=== PATIENT | female | born 1970 | race African-American/Black ===

== ENCOUNTER 2018-10-24 08:36 | Inpatient (IN) | payer MEDICAID ==
[~2018-10-24] VITALS: Ht 160 cm; Wt 83.9 kg
[~2018-10-24 08:36] MED LIST: ALBUTEROL; BACL-141 PO; BUSP15TA3 PO; CETI10TA6 PO; FLUO40CA49 PO; GABA-290 PO; HYDR25TA PO; IBUP-2030 PO; OLAN20TA16 PO; OMEP20TA2 PO; POTA10TA15 PO; SIMV10TA6 PO; TRAZ150T78 PO
[2018-10-24] MEDS ORDERED: SODIUM CHLORIDE 0.9% 1,000 ML IV ONE ×2 (09:20→11:00)
[2018-10-24] MEDS ORDERED: ALBUTEROL (0.083%) 2.5MG/3ML NEB HHN STA (09:20)
[2018-10-24] MEDS ORDERED: IPRATROPIUM BROMIDE (0.02%) 0.5MG/2.5ML NEB HHN STA (09:20)
[2018-10-24 10:03] LABS: BASOPHILS % 0.4 % (0.0-2.0); EOSINOPHILS % 0.5 % (0.0-5.0); HEMATOCRIT. 37.5 % (36.0-48.0); HEMOGLOBIN. 12.4 g/dL (12.0-16.0); LYMPHOCYTES % 17.4 % (20.0-50.0); MEAN CORPUSCULAR HEMOGLOBIN 31.4 pg (28.0-32.0); MEAN CORPUSCULAR VOLUME 94.9 fL (81.0-99.0); MEAN PLATELET VOLUME 8.2 fl (7.4-10.4); MONOCYTES % 5.5 % (2.0-8.0); NEUTROPHILS % 76.2 % (40.0-76.0); PLATELET 288 x1000/uL (130-400); RED BLOOD CELL COUNT 3.95 mill/uL (4.2-5.4); RED CELL DISTRIBUTION WIDTH 14.5 % (11.6-14.6)
[2018-10-24 10:11] LABS: CHLORIDE 104 mEq/L (98-107)
[2018-10-24] MEDS ORDERED: GUAIFENESIN-DM 200MG-20MG/10ML UDC PO ONE (11:00)
[2018-10-24 11:45] LABS: CLARITY URINE CLEAR (CLEAR); COLOR URINE YELLOW (YELLOW); KETONES URINE NEGATIVE (NEGATIVE); LEUKOCYTE ESTERASE URINE NEGATIVE (NEGATIVE); NITRITE URINE NEGATIVE (NEGATIVE); OCCULT BLOOD URINE NEGATIVE (NEGATIVE); PH URINE 7.5 (4.5-8.0); PROTEIN URINE NEGATIVE (NEGATIVE); SPECIFIC GRAVITY URINE 1.001 (1.005-1.030); UROBILINOGEN URINE 0.2 E.U./dL (0.2-1.0)
[2018-10-24] MEDS ORDERED: SODIUM CHLORIDE 0.9% 2,000 ML IV ONE (12:45)
[2018-10-24] MEDS ORDERED: ONDANSETRON HCL 4MG/2ML INJ IV PRN (14:30)
[2018-10-24] MEDS ORDERED: IPRATROPIUM/ALBUTEROL 0.5-3(2.5)MG/3ML NEB HHN PRN ×2 (14:30→22:00)
[2018-10-24] MEDS ORDERED: ACETAMINOPHEN 325MG TABLET PO PRN (14:30)
[2018-10-24 17:20] VITALS: BP 145/77
[2018-10-24 17:46] VITALS: BP 145/77
[2018-10-24] MEDS ORDERED: PNEUMOCOCCAL 23-VAL P-SAC VAC 0.5 ML IM ONE (18:15)
[2018-10-24] MEDS: GUAIFENESIN 600MG ER TABLET PO SCH (21:07)
[2018-10-24] MEDS: LEVOFLOXACIN 750MG PREMIX 150 ML IV SCH (21:08)
[2018-10-24] MEDS: GUAIFENESIN-DM 200MG-20MG/10ML UDC PO PRN (21:11)
[2018-10-25] MEDS: IPRATROPIUM/ALBUTEROL 0.5-3(2.5)MG/3ML NEB HHN SCH ×6 (00:32→20:09)
[2018-10-25] MEDS ORDERED: BENZONATATE 100MG CAPSULE PO PRN (07:15)
[2018-10-25 08:00] VITALS: BP 115/96
[2018-10-25] MEDS: BUDESONIDE 0.5MG/2ML NEB HHN SCH ×2 (09:03→20:03)
[2018-10-25] MEDS: GUAIFENESIN 600MG ER TABLET PO SCH ×2 (09:44→21:25)
[2018-10-25] MEDS: GUAIFENESIN-DM 200MG-20MG/10ML UDC PO PRN (09:45)
[2018-10-25 10:56] LABS: BG BASE EXCESS -3.6 mmol/L (-2.0-2.0); BG CARBOXYHEMOGLOBIN 0.9 % (0.5-1.5); BG DEOXYHEMOGLOBIN 9.7 % (0.0-5.0); BG FRACTION INSPIRED OXYGEN 21; BG HCO3 ACT 19.7 mmol/L (22.0-26.0); BG METHEMOGLOBIN 0.1 % (0.0-1.5); BG OXYGEN SATURATION 90.2 % (92.0-98.5); BG OXYHEMOGLOBIN 89.3 % (94.0-97.0); BG PH 7.435 (7.350-7.450); BG PO2 55.3 mmHg (75.0-100.0); BG SAMPLE SITE RIGHT RADIAL; BG TOTAL HEMOGLOBIN 11.3 g/dL (12.0-18.0); BG VENT MODE ROOM AIR
[2018-10-25 12:00] VITALS: BP 132/78
[2018-10-25] MEDS: METHYLPREDNISOLONE SOD SUCC 40 MG/ML VIAL IV SCH ×2 (13:42→21:25)
[2018-10-25] MEDS ORDERED: AZITHROMYCIN 500 MG in DEXT 5% WATER 250 ML IV SCH (14:00)
[2018-10-25 16:00] VITALS: BP 127/73
[2018-10-25] MEDS ORDERED: MONTELUKAST SODIUM 10MG TABLET PO SCH (17:00)
[2018-10-25 20:00] VITALS: BP 130/81
[2018-10-25] MEDS: LEVOFLOXACIN 750MG PREMIX 150 ML IV SCH (21:26)
[2018-10-26] VITALS: BP 133/76
[2018-10-26] MEDS: IPRATROPIUM/ALBUTEROL 0.5-3(2.5)MG/3ML NEB HHN SCH ×4 (00:26→12:41)
[2018-10-26 04:00] VITALS: BP 140/78
[2018-10-26] MEDS: GUAIFENESIN-DM 200MG-20MG/10ML UDC PO PRN (07:02)
[2018-10-26] MEDS: METHYLPREDNISOLONE SOD SUCC 40 MG/ML VIAL IV SCH ×2 (07:02→13:14)
[2018-10-26 07:37] LABS: HEMATOCRIT. 36.5 % (36.0-48.0); HEMOGLOBIN. 11.9 g/dL (12.0-16.0); MEAN CORPUSCULAR VOLUME 94.9 fL (81.0-99.0); PLATELET 288 x1000/uL (130-400); RED BLOOD CELL COUNT 3.85 mill/uL (4.2-5.4); RED CELL DISTRIBUTION WIDTH 14.5 % (11.6-14.6)
[2018-10-26 08:00] VITALS: BP 139/75
[2018-10-26] MEDS: GUAIFENESIN 600MG ER TABLET PO SCH (08:13)
[2018-10-26] MEDS: BUDESONIDE 0.5MG/2ML NEB HHN SCH (08:44)
[2018-10-26 09:56] LABS: CHLORIDE 101 mEq/L (98-107)
[2018-10-26 12:00] VITALS: BP 131/77
[2018-10-26 12:24] LABS: PLATELET ESTIMATE NORMAL
[2018-10-26] MEDS ORDERED: GUAIFENESIN/CODEINE 100-10MG/5ML UDC PO PRN (13:45)
[2018-10-26 14:43] VITALS: BP 131/77
[2018-10-26] MEDS ORDERED: FLUTICASONE PROPIONATE 50MCG/SPRAY BOTTLE BOTHNSTRLS SCH (21:00)
[2018-10-27 04:17] LABS: HIV SCREEN 4G Non Reactive (Non Reactive)
== END 2018-10-26 15:39 | disposition home or self-care (01) | DRG 720 ==
LOC: ER 08:57 → 8WST 13:15 → ENRESERV 14:47
PROVIDERS: ADMIT Internal Medicine; ATTEND Internal Medicine
DX: A41.9 Sepsis, unspecified organism (principal); J96.21 Acute and chronic respiratory failure with hypoxia; I11.0 Hypertensive heart disease with heart failure; J15.9 Unspecified bacterial pneumonia; I50.22 Chronic systolic (congestive) heart failure; M94.0 Chondrocostal junction syndrome [Tietze]; F17.210 Nicotine dependence, cigarettes, uncomplicated; J44.1 Chronic obstructive pulmonary disease with (acute) exacerbation; F12.90 Cannabis use, unspecified, uncomplicated; J44.0 Chronic obstructive pulmonary disease with (acute) lower respiratory infection; F32.9 Major depressive disorder, single episode, unspecified; Z88.0 Allergy status to penicillin; Z88.6 Allergy status to analgesic agent
CPT/HCPCS: 36415; 36600; 71045; 71250; 80048; 82375; 82805; 82962; 83605; 84145; 84484; 87389; 87493; 87804; 90732; 93005; 93306; 94640; 94644; 96360; 99285; J0456; J1956; J2920; J7030; J7050; J7060; J7611; J7620; J7626

== ENCOUNTER 2019-01-31 05:24 | Emergency (ER) | payer MEDICAID ==
[~2019-01-31] VITALS: Ht 167.6 cm; Wt 80.0 kg
[2019-01-31] MEDS ORDERED: SODIUM CHLORIDE 0.9% 1,000 ML IV ONE (09:27)
[2019-01-31] MEDS ORDERED: ONDANSETRON HCL 4MG/2ML INJ IV STA (09:27)
[2019-01-31] MEDS ORDERED: FAMOTIDINE 20MG/2ML VIAL IV STA (09:27)
[2019-01-31 09:49] LABS: BASOPHILS % 0.8 % (0.0-2.0); EOSINOPHILS % 0.1 % (0.0-5.0); HEMATOCRIT. 39.5 % (36.0-48.0); HEMOGLOBIN. 13.8 g/dL (12.0-16.0); LYMPHOCYTES % 21.5 % (20.0-50.0); MEAN CORPUSCULAR HEMOGLOBIN 31.8 pg (28.0-32.0); MEAN CORPUSCULAR VOLUME 90.8 fL (81.0-99.0); MEAN PLATELET VOLUME 7.9 fl (7.4-10.4); MONOCYTES % 4.6 % (2.0-8.0); PLATELET 337 x1000/uL (130-400); RED BLOOD CELL COUNT 4.35 mill/uL (4.2-5.4); RED CELL DISTRIBUTION WIDTH 14.5 % (11.6-14.6)
[2019-01-31 09:55] LABS: CHLORIDE 102 mEq/L (98-107)
[2019-01-31 09:56] LABS: PROTHROMBIN TIME 10.6 sec (9.6-11.0)
[2019-01-31 10:05] LABS: HCG SCREEN NEGATIVE
[2019-01-31] MEDS ORDERED: KETOROLAC 30MG/ML VIAL IV ONE (12:15)
[2019-01-31] MEDS ORDERED: ONDANSETRON HCL 4MG/2ML INJ IV ONE (12:15)
[2019-01-31 12:50] VITALS: BP 130/87
[2019-01-31 12:58] LABS: CLARITY URINE CLEAR (CLEAR); COLOR URINE YELLOW (YELLOW); KETONES URINE NEGATIVE (NEGATIVE); LEUKOCYTE ESTERASE URINE NEGATIVE (NEGATIVE); NITRITE URINE NEGATIVE (NEGATIVE); OCCULT BLOOD URINE NEGATIVE (NEGATIVE); PH URINE 6.5 (4.5-8.0); PROTEIN URINE NEGATIVE (NEGATIVE); SPECIFIC GRAVITY URINE 1.008 (1.005-1.030); UROBILINOGEN URINE 0.2 E.U./dL (0.2-1.0)
== END 2019-01-31 14:14 | disposition home or self-care (01) ==
LOC: ER 05:24
DX: R74.0 Nonspecific elevation of levels of transaminase and lactic acid dehydrogenase [LDH] (principal); R16.0 Hepatomegaly, not elsewhere classified; R11.2 Nausea with vomiting, unspecified; F17.200 Nicotine dependence, unspecified, uncomplicated; F12.10 Cannabis abuse, uncomplicated; J44.9 Chronic obstructive pulmonary disease, unspecified; I10 Essential (primary) hypertension; Z79.899 Other long term (current) drug therapy; Z88.0 Allergy status to penicillin; Z88.6 Allergy status to analgesic agent
CPT/HCPCS: 36415; 76700; 80053; 81003; 81025; 83690; 84703; 85025; 85610; 96361; 96374; 96375; 96376; 99284; J1885; J2405; J3490; J7030

== ENCOUNTER 2019-02-25 10:48 | Inpatient (IN) | payer MEDICAID ==
[~2019-02-25] VITALS: Ht 162.6 cm; Wt 84.8 kg
[2019-02-25] MEDS ORDERED: ONDANSETRON HCL 4MG/2ML INJ IV STA (13:27)
[2019-02-25] MEDS ORDERED: SODIUM CHLORIDE 0.9% 1,000 ML IV ONE (13:27)
[2019-02-25] MEDS ORDERED: MORPHINE SULFATE 4 MG/ML CPJ (NOT FOR IM USE) IV STA (13:27)
[2019-02-25 14:17] LABS: BASOPHILS % 0.6 % (0.0-2.0); EOSINOPHILS % 0.2 % (0.0-5.0); HEMATOCRIT. 41.5 % (36.0-48.0); HEMOGLOBIN. 14.4 g/dL (12.0-16.0); LYMPHOCYTES % 12.7 % (20.0-50.0); MEAN CORPUSCULAR HEMOGLOBIN 31.8 pg (28.0-32.0); MEAN CORPUSCULAR VOLUME 91.8 fL (81.0-99.0); MONOCYTES % 3.9 % (2.0-8.0); NEUTROPHILS % 82.6 % (40.0-76.0); PLATELET 366 x1000/uL (130-400); RED BLOOD CELL COUNT 4.52 mill/uL (4.2-5.4)
[2019-02-25 14:24] LABS: CHLORIDE 91 mEq/L (98-107)
[2019-02-25 14:32] LABS: INR 1.5; PROTHROMBIN TIME 14.7 sec (9.6-11.0)
[2019-02-25 15:19] LABS: CLARITY URINE CLEAR (CLEAR); COLOR URINE DARK YELLOW (YELLOW); KETONES URINE NEGATIVE (NEGATIVE); LEUKOCYTE ESTERASE URINE NEGATIVE (NEGATIVE); NITRITE URINE NEGATIVE (NEGATIVE); OCCULT BLOOD URINE NEGATIVE (NEGATIVE); PH URINE 5.5 (4.5-8.0); PROTEIN URINE NEGATIVE (NEGATIVE); SPECIFIC GRAVITY URINE 1.012 (1.005-1.030)
[2019-02-25] MEDS ORDERED: LACTATED RINGERS 1,000 ML IV STA (15:37)
[2019-02-25] MEDS ORDERED: POTASSIUM CHLORIDE INJ 40 MEQ in DEXT 5% WATER 500 ML IV ONE (15:45)
[2019-02-25] MEDS ORDERED: IOHEXOL-300 100 ML BOTTLE ONE (15:53)
[2019-02-25 17:10] LABS: HEPATITIS B SURFACE ANTIGEN NEGATIVE
[2019-02-25 17:40] LABS: HEPATITIS A AB IGM NEGATIVE (NEGATIVE)
[2019-02-25] MEDS ORDERED: CLONIDINE 0.1MG TABLET PO PRN (18:15)
[2019-02-25] MEDS ORDERED: ONDANSETRON HCL 4MG/2ML INJ IV PRN (18:15)
[2019-02-25] MEDS ORDERED: METOCLOPRAMIDE HCL 10MG/2ML VIAL IV PRN (18:15)
[2019-02-25 18:30] VITALS: BP 131/68
[2019-02-25] MEDS ORDERED: POTASSIUM CHLORIDE 20MEQ TABLET SR PO NR (18:45)
[2019-02-25 19:43] VITALS: BP 131/68
[2019-02-25] MEDS: DEXT 5%/0.9% NACL 1,000 ML IV SCH (20:44)
[2019-02-25] MEDS ORDERED: POTASSIUM CHLORIDE INJ 40 MEQ in DEXT 5% WATER 250 ML IV NR (21:30)
[2019-02-26 00:05] VITALS: BP 119/71
[2019-02-26 04:00] VITALS: BP 118/70
[2019-02-26] MEDS: DEXT 5%/0.9% NACL 1,000 ML IV SCH ×2 (04:15→15:59)
[2019-02-26 06:43] LABS: BASOPHILS % 0.6 % (0.0-2.0); EOSINOPHILS % 4.5 % (0.0-5.0); HEMATOCRIT. 36.9 % (36.0-48.0); HEMOGLOBIN. 12.7 g/dL (12.0-16.0); LYMPHOCYTES % 25.3 % (20.0-50.0); MEAN CORPUSCULAR HEMOGLOBIN 31.5 pg (28.0-32.0); MEAN CORPUSCULAR VOLUME 91.8 fL (81.0-99.0); MEAN PLATELET VOLUME 8.1 fl (7.4-10.4); NEUTROPHILS % 62.6 % (40.0-76.0); PLATELET 299 x1000/uL (130-400); RED BLOOD CELL COUNT 4.03 mill/uL (4.2-5.4); RED CELL DISTRIBUTION WIDTH 14.1 % (11.6-14.6)
[2019-02-26 07:29] LABS: CHLORIDE 100 mEq/L (98-107)
[2019-02-26 08:00] VITALS: BP 120/68
[2019-02-26 09:26] LABS: *AMPHETAMINES SCREEN URINE NEGATIVE (NEGATIVE); *BARBITURATES SCREEN URINE NEGATIVE (NEGATIVE); *BENZODIAZEPINES SCREEN URINE NEGATIVE (NEGATIVE)
[2019-02-26 09:27] LABS: *COCAINE SCREEN URINE NEGATIVE (NEGATIVE); METHADONE URINE SCREEN NEGATIVE (NEGATIVE); OPIATES URINE SCREEN NEGATIVE (NEGATIVE); PHENCYCLIDINE URINE SCREEN NEGATIVE (NEGATIVE)
[2019-02-26 09:32] LABS: CANNABINOID URINE SCREEN PRESUMTIVE POSITIVE (NEGATIVE)
[2019-02-26] MEDS: MORPHINE SULFATE 4 MG/ML CPJ (NOT FOR IM USE) IV PRN (12:00)
[2019-02-26 12:04] VITALS: BP 125/75
[2019-02-26 16:00] VITALS: BP 130/68
[2019-02-26] MEDS: GUAIFENESIN-DM 200MG-20MG/10ML UDC PO PRN (16:05)
[2019-02-26] MEDS ORDERED: IPRATROPIUM/ALBUTEROL 0.5-3(2.5)MG/3ML NEB HHN PRN (19:00)
[2019-02-26 20:00] VITALS: BP 113/60
[2019-02-26] MEDS: ZOLPIDEM TARTRATE 5MG TABLET PO PRN (21:01)
[2019-02-27] VITALS: BP 131/90
[2019-02-27] MEDS: DEXT 5%/0.9% NACL 1,000 ML IV SCH ×3 (01:12→20:37)
[2019-02-27] MEDS: MORPHINE SULFATE 4 MG/ML CPJ (NOT FOR IM USE) IV PRN ×3 (02:50→20:31)
[2019-02-27 04:00] VITALS: BP 144/78
[2019-02-27 08:00] VITALS: BP 125/82
[2019-02-27] MEDS: FLUOXETINE HCL 20MG CAPSULE PO SCH (11:53)
[2019-02-27] MEDS: POTASSIUM CHLORIDE 10MEQ TABLET SR PO SCH (11:53)
[2019-02-27] MEDS: OMEPRAZOLE 20MG CAPSULE EXTENDED RELEASE PO SCH (11:53)
[2019-02-27] MEDS: CETIRIZINE 10MG TABLET PO SCH (11:53)
[2019-02-27] MEDS: BACLOFEN 10MG TABLET PO SCH (11:54)
[2019-02-27] MEDS: OLANZAPINE 10MG TABLET PO SCH (11:54)
[2019-02-27] MEDS: HYDROCHLOROTHIAZIDE 25MG TABLET PO SCH (11:54)
[2019-02-27] MEDS: GABAPENTIN 300MG CAPSULE PO SCH ×2 (11:55→16:53)
[2019-02-27 12:00] VITALS: BP 132/90
[2019-02-27] MEDS: BUSPIRONE HCL 10MG TABLET PO SCH ×3 (12:22→20:28)
[2019-02-27 16:00] VITALS: BP 127/78
[2019-02-27 20:00] VITALS: BP 145/82
[2019-02-27] MEDS: ATORVASTATIN CALCIUM 10MG TABLET PO SCH (20:27)
[2019-02-27] MEDS: ZOLPIDEM TARTRATE 5MG TABLET PO PRN (20:28)
[2019-02-27] MEDS: TRAZODONE HCL 50MG TABLET PO SCH (20:28)
[2019-02-28] VITALS: BP 133/67
[2019-02-28] MEDS: GUAIFENESIN-DM 200MG-20MG/10ML UDC PO PRN ×2 (03:12→20:08)
[2019-02-28] MEDS: MORPHINE SULFATE 4 MG/ML CPJ (NOT FOR IM USE) IV PRN ×2 (03:13→11:21)
[2019-02-28 04:00] VITALS: BP 141/72
[2019-02-28] MEDS: DEXT 5%/0.9% NACL 1,000 ML IV SCH ×2 (05:45→16:50)
[2019-02-28 08:00] VITALS: BP 154/89
[2019-02-28] MEDS: BACLOFEN 10MG TABLET PO SCH (09:09)
[2019-02-28] MEDS: FLUOXETINE HCL 20MG CAPSULE PO SCH (09:10)
[2019-02-28] MEDS: OMEPRAZOLE 20MG CAPSULE EXTENDED RELEASE PO SCH (09:11)
[2019-02-28] MEDS: HYDROCHLOROTHIAZIDE 25MG TABLET PO SCH (09:11)
[2019-02-28] MEDS: POTASSIUM CHLORIDE 10MEQ TABLET SR PO SCH (09:11)
[2019-02-28] MEDS: GABAPENTIN 300MG CAPSULE PO SCH ×2 (09:13→16:50)
[2019-02-28] MEDS: CETIRIZINE 10MG TABLET PO SCH (09:18)
[2019-02-28] MEDS: OLANZAPINE 10MG TABLET PO SCH (09:18)
[2019-02-28] MEDS: BUSPIRONE HCL 10MG TABLET PO SCH ×4 (10:18→20:08)
[2019-02-28 12:00] VITALS: BP 130/75
[2019-02-28 16:00] VITALS: BP 146/80
[2019-02-28 20:00] VITALS: BP_SYST 141; BP_SYST 155; BP_DIAS 65; BP_DIAS 88
[2019-02-28] MEDS: ATORVASTATIN CALCIUM 10MG TABLET PO SCH (20:08)
[2019-02-28] MEDS: ZOLPIDEM TARTRATE 5MG TABLET PO PRN (20:08)
[2019-02-28] MEDS: TRAZODONE HCL 50MG TABLET PO SCH (20:11)
[2019-03-01] VITALS: BP 148/69
[2019-03-01] MEDS: DEXT 5%/0.9% NACL 1,000 ML IV SCH ×2 (01:31→12:28)
[2019-03-01 04:00] VITALS: BP 153/80
[2019-03-01 07:00] LABS: BASOPHILS % 0.7 % (0.0-2.0); EOSINOPHILS % 6.5 % (0.0-5.0); HEMATOCRIT. 35.6 % (36.0-48.0); HEMOGLOBIN. 12.1 g/dL (12.0-16.0); LYMPHOCYTES % 29.7 % (20.0-50.0); MEAN CORPUSCULAR HEMOGLOBIN 31.8 pg (28.0-32.0); MEAN CORPUSCULAR VOLUME 93.7 fL (81.0-99.0); MEAN PLATELET VOLUME 8.7 fl (7.4-10.4); MONOCYTES % 6.9 % (2.0-8.0); NEUTROPHILS % 56.2 % (40.0-76.0); PLATELET 249 x1000/uL (130-400); RED CELL DISTRIBUTION WIDTH 14.7 % (11.6-14.6)
[2019-03-01 07:07] LABS: CHLORIDE 102 mEq/L (98-107)
[2019-03-01 08:00] VITALS: BP 161/88
[2019-03-01] MEDS: FLUOXETINE HCL 20MG CAPSULE PO SCH (11:43)
[2019-03-01] MEDS: POTASSIUM CHLORIDE 10MEQ TABLET SR PO SCH (11:43)
[2019-03-01] MEDS: BACLOFEN 10MG TABLET PO SCH (11:44)
[2019-03-01] MEDS: CETIRIZINE 10MG TABLET PO SCH (11:45)
[2019-03-01] MEDS: OLANZAPINE 10MG TABLET PO SCH (11:45)
[2019-03-01] MEDS: BUSPIRONE HCL 10MG TABLET PO SCH ×2 (11:45→14:17)
[2019-03-01] MEDS: GABAPENTIN 300MG CAPSULE PO SCH (11:45)
[2019-03-01] MEDS: HYDROCHLOROTHIAZIDE 25MG TABLET PO SCH (11:50)
[2019-03-01] MEDS: OMEPRAZOLE 20MG CAPSULE EXTENDED RELEASE PO SCH (11:52)
[2019-03-01 12:00] VITALS: BP 144/82
[2019-03-01] MEDS: GUAIFENESIN-DM 200MG-20MG/10ML UDC PO PRN (12:25)
[2019-03-01 14:38] VITALS: BP 144/82
== END 2019-03-01 16:30 | disposition home or self-care (01) | DRG 249 ==
LOC: ER 10:48 → 7WST 16:30 → EDBEDREQ 16:34 → ENRESERV 17:13
PROVIDERS: ADMIT Internal Medicine; ATTEND Internal Medicine
DX: K52.9 Noninfective gastroenteritis and colitis, unspecified (principal); D68.9 Coagulation defect, unspecified; J44.1 Chronic obstructive pulmonary disease with (acute) exacerbation; E66.01 Morbid (severe) obesity due to excess calories; K76.0 Fatty (change of) liver, not elsewhere classified; E87.1 Hypo-osmolality and hyponatremia; K80.10 Calculus of gallbladder with chronic cholecystitis without obstruction; R16.0 Hepatomegaly, not elsewhere classified; B17.9 Acute viral hepatitis, unspecified; E78.5 Hyperlipidemia, unspecified; I10 Essential (primary) hypertension; F31.9 Bipolar disorder, unspecified; K21.9 Gastro-esophageal reflux disease without esophagitis; F17.210 Nicotine dependence, cigarettes, uncomplicated; R74.0 Nonspecific elevation of levels of transaminase and lactic acid dehydrogenase [LDH]; M62.838 Other muscle spasm; Z68.32 Body mass index [BMI] 32.0-32.9, adult; Z82.3 Family history of stroke; Z88.0 Allergy status to penicillin; Z88.6 Allergy status to analgesic agent; Z79.899 Other long term (current) drug therapy; Z71.6 Tobacco abuse counseling
CPT/HCPCS: 36415; 72148; 74177; 76700; 78227; 80048; 80076; 80305; 80307; 83036; 83605; 84484; 86705; 86709; 86803; 87340; 93970; 96361; 96365; 96366; 96375; 99285; A9537; J2270; J2405; J3480; J7030; J7042; J7060; J7120; J7620; Q9967

== ENCOUNTER 2019-07-29 15:22 | Inpatient (IN) | payer MEDICAID ==
[~2019-07-29] VITALS: Ht 162.6 cm; Wt 95.3 kg
[~2019-07-29 15:22] MED LIST changes: -ALBUTEROL; -OLAN20TA16 PO; +OLAN20TA34 PO
[2019-07-29] MEDS ORDERED: MORPHINE SULFATE 4 MG/ML CPJ (NOT FOR IM USE) IV STA (16:36)
[2019-07-29] MEDS ORDERED: ONDANSETRON HCL 4MG/2ML INJ IV STA (16:36)
[2019-07-29] MEDS ORDERED: METHYLPREDNISOLONE SOD SUCC 125 MG/2 ML VIAL IV STA (16:36)
[2019-07-29] MEDS ORDERED: LEVOFLOXACIN 750MG PREMIX 150 ML IV ONE (16:45)
[2019-07-29] MEDS ORDERED: IPRATROPIUM/ALBUTEROL 0.5-3(2.5)MG/3ML NEB HHN ONE (16:45)
[2019-07-29] MEDS ORDERED: MAGNESIUM 2 G PREMIX 50 ML IV ONE (16:45)
[2019-07-29 16:55] LABS: BG BASE EXCESS 4.9 mmol/L (-2.0-2.0); BG CARBOXYHEMOGLOBIN 6.8 % (0.5-1.5); BG DEOXYHEMOGLOBIN 7.2 % (0.0-5.0); BG FRACTION INSPIRED OXYGEN 21; BG HCO3 ACT 29.7 mmol/L (22.0-26.0); BG METHEMOGLOBIN 0.1 % (0.0-1.5); BG OXYGEN SATURATION 92.3 % (92.0-98.5); BG OXYHEMOGLOBIN 85.9 % (94.0-97.0); BG PCO2 45.1 mmHg (35.0-45.0); BG PH 7.437 (7.350-7.450); BG PO2 60.7 mmHg (75.0-100.0); BG SAMPLE SITE RIGHT RADIAL; BG TOTAL HEMOGLOBIN 12.2 g/dL (12.0-18.0); BG VENT MODE ROOM AIR
[2019-07-29] MEDS ORDERED: SODIUM CHLORIDE 0.9% 1,000 ML IV ONE (17:40)
[2019-07-29 17:46] LABS: BASOPHILS % 0.4 % (0.0-2.0); EOSINOPHILS % 2.8 % (0.0-5.0); HEMATOCRIT. 32.2 % (36.0-48.0); LYMPHOCYTES % 27.3 % (20.0-50.0); MEAN CORPUSCULAR HEMOGLOBIN 31.2 pg (28.0-32.0); MEAN CORPUSCULAR VOLUME 91.2 fL (81.0-99.0); MEAN PLATELET VOLUME 8.9 fl (7.4-10.4); MONOCYTES % 5.5 % (2.0-8.0); PLATELET 279 x1000/uL (130-400); RED BLOOD CELL COUNT 3.53 mill/uL (4.2-5.4); RED CELL DISTRIBUTION WIDTH 13.4 % (11.6-14.6)
[2019-07-29 17:49] LABS: CHLORIDE 86 mEq/L (98-107)
[2019-07-29 17:53] LABS: ETHANOL BLOOD < 10 mg/dL
[2019-07-29 21:10] VITALS: BP 125/71
[2019-07-29] MEDS ORDERED: BREX1TAB PO (22:09)
[2019-07-29] MEDS ORDERED: BENZ1TAB7 PO (22:10)
[2019-07-29] MEDS ORDERED: CLONIDINE 0.2MG TABLET PO PRN (23:00)
[2019-07-29] MEDS ORDERED: MORPHINE SULFATE 2 MG/ML CPJ (NOT FOR IM USE) IV PRN (23:00)
[2019-07-30] VITALS (7 sets, daily range): BP systolic 115–168; BP diastolic 65–81
[2019-07-30] MEDS: METHYLPREDNISOLONE SOD SUCC 125 MG/2 ML VIAL IV SCH ×5 (00:06→23:00)
[2019-07-30] MEDS: IPRATROPIUM/ALBUTEROL 0.5-3(2.5)MG/3ML NEB HHN PRN ×6 (02:11→20:36)
[2019-07-30 06:41] LABS: BASOPHILS % 0.2 % (0.0-2.0); EOSINOPHILS % 0.1 % (0.0-5.0); HEMATOCRIT. 35.2 % (36.0-48.0); HEMOGLOBIN. 11.9 g/dL (12.0-16.0); LYMPHOCYTES % 9.6 % (20.0-50.0); MEAN CORPUSCULAR HEMOGLOBIN 30.9 pg (28.0-32.0); MEAN CORPUSCULAR VOLUME 91.5 fL (81.0-99.0); MEAN PLATELET VOLUME 9.3 fl (7.4-10.4); MONOCYTES % 1.6 % (2.0-8.0); NEUTROPHILS % 88.5 % (40.0-76.0); PLATELET 264 x1000/uL (130-400); RED BLOOD CELL COUNT 3.84 mill/uL (4.2-5.4); RED CELL DISTRIBUTION WIDTH 13.3 % (11.6-14.6)
[2019-07-30] MEDS: GABAPENTIN 300MG CAPSULE PO SCH ×2 (08:03→17:01)
[2019-07-30] MEDS: HYDROCHLOROTHIAZIDE 25MG TABLET PO SCH (08:03)
[2019-07-30] MEDS: FLUOXETINE HCL 20MG CAPSULE PO SCH (08:03)
[2019-07-30] MEDS: OMEPRAZOLE 20MG CAPSULE EXTENDED RELEASE PO SCH (08:03)
[2019-07-30] MEDS: BUSPIRONE HCL 5MG TABLET PO SCH ×4 (08:03→20:43)
[2019-07-30] MEDS: BENZTROPINE MESYLATE 1MG TABLET PO SCH (08:03)
[2019-07-30] MEDS: OLANZAPINE 10MG TABLET PO SCH (08:03)
[2019-07-30] MEDS: BACLOFEN 10MG TABLET PO SCH (08:04)
[2019-07-30] MEDS: ENOXAPARIN 30MG/0.3ML SYR SUBCUT SCH ×2 (08:04→20:42)
[2019-07-30] MEDS: HYDROCODONE/ACETAMINOPHEN 5/325MG TABLET PO PRN ×2 (08:05→17:16)
[2019-07-30] MEDS ORDERED: BREXPIPRAZOLE 1 MG PO SCH (09:00)
[2019-07-30 09:46] LABS: CHLORIDE 92 mEq/L (98-107)
[2019-07-30] MEDS ORDERED: LEVOFLOXACIN 500MG PREMIX 100 ML IV SCH (16:00)
[2019-07-30] MEDS: LEVOFLOXACIN 500MG PREMIX 100 ML IV SCH (16:59)
[2019-07-30] MEDS: TRAZODONE HCL 50MG TABLET PO SCH (20:42)
[2019-07-30] MEDS: ZOLPIDEM TARTRATE 5MG TABLET PO PRN (20:43)
[2019-07-30] MEDS: ACETAMINOPHEN 325MG TABLET PO PRN (20:43)
[2019-07-30] MEDS: ATORVASTATIN CALCIUM 10MG TABLET PO SCH (20:43)
[2019-07-30] MEDS ORDERED: MEDICATION NOT ON FORMULARY EA (Simvastatin 10 MG) PO SCH (21:00)
[2019-07-31] MEDS: ACETAMINOPHEN 325MG TABLET PO PRN (03:13)
[2019-07-31 04:03] VITALS: BP 128/76
[2019-07-31] MEDS: IPRATROPIUM/ALBUTEROL 0.5-3(2.5)MG/3ML NEB HHN PRN ×5 (04:16→20:16)
[2019-07-31] MEDS: METHYLPREDNISOLONE SOD SUCC 125 MG/2 ML VIAL IV SCH ×3 (05:03→17:46)
[2019-07-31 08:00] VITALS: BP 131/69
[2019-07-31] MEDS: BACLOFEN 10MG TABLET PO SCH (08:30)
[2019-07-31] MEDS: GABAPENTIN 300MG CAPSULE PO SCH ×2 (08:30→17:48)
[2019-07-31] MEDS: FLUOXETINE HCL 20MG CAPSULE PO SCH (08:30)
[2019-07-31] MEDS: ENOXAPARIN 30MG/0.3ML SYR SUBCUT SCH ×2 (08:30→22:53)
[2019-07-31] MEDS: BENZTROPINE MESYLATE 1MG TABLET PO SCH (08:30)
[2019-07-31] MEDS: BUSPIRONE HCL 5MG TABLET PO SCH ×4 (08:31→22:52)
[2019-07-31] MEDS: HYDROCHLOROTHIAZIDE 25MG TABLET PO SCH (08:31)
[2019-07-31] MEDS: OLANZAPINE 10MG TABLET PO SCH (08:31)
[2019-07-31] MEDS: OMEPRAZOLE 20MG CAPSULE EXTENDED RELEASE PO SCH (08:31)
[2019-07-31] MEDS: HYDROCODONE/ACETAMINOPHEN 5/325MG TABLET PO PRN ×3 (09:19→22:53)
[2019-07-31 12:00] VITALS: BP 128/79
[2019-07-31 16:00] VITALS: BP 109/65
[2019-07-31] MEDS: LEVOFLOXACIN 500MG PREMIX 100 ML IV SCH (17:46)
[2019-07-31 20:00] VITALS: BP 115/72
[2019-07-31] MEDS: TRAZODONE HCL 50MG TABLET PO SCH (22:52)
[2019-07-31] MEDS: ATORVASTATIN CALCIUM 10MG TABLET PO SCH (22:52)
[2019-07-31] MEDS: ZOLPIDEM TARTRATE 5MG TABLET PO PRN (22:52)
[2019-08-01] VITALS: BP 125/68
[2019-08-01] MEDS: METHYLPREDNISOLONE SOD SUCC 125 MG/2 ML VIAL IV SCH ×2 (00:12→06:09)
[2019-08-01 04:00] VITALS: BP 112/64
[2019-08-01 05:46] LABS: CHLORIDE 95 mEq/L (98-107)
[2019-08-01 05:49] LABS: BASOPHILS % 0.1 % (0.0-2.0); HEMATOCRIT. 33.7 % (36.0-48.0); HEMOGLOBIN. 11.2 g/dL (12.0-16.0); LYMPHOCYTES % 8.3 % (20.0-50.0); MEAN CORPUSCULAR HEMOGLOBIN 30.6 pg (28.0-32.0); MEAN PLATELET VOLUME 9.7 fl (7.4-10.4); MONOCYTES % 3.3 % (2.0-8.0); NEUTROPHILS % 88.3 % (40.0-76.0); PLATELET 255 x1000/uL (130-400); RED BLOOD CELL COUNT 3.66 mill/uL (4.2-5.4)
[2019-08-01 07:49] VITALS: BP 138/96
[2019-08-01 08:52] VITALS: BP 136/80
[2019-08-01] MEDS ORDERED: P20 MT (09:02)
[2019-08-01] MEDS ORDERED: LEVO500T2 MT (09:03)
[2019-08-01] MEDS ORDERED: ALBU6.7H9 INH (09:10)
[2019-08-01 09:11] VITALS: BP 136/80
[2019-08-01] MEDS: ENOXAPARIN 30MG/0.3ML SYR SUBCUT SCH (09:45)
[2019-08-01] MEDS: OLANZAPINE 10MG TABLET PO SCH (09:46)
[2019-08-01] MEDS: BACLOFEN 10MG TABLET PO SCH (09:46)
[2019-08-01] MEDS: BUSPIRONE HCL 5MG TABLET PO SCH (09:46)
[2019-08-01] MEDS: FLUOXETINE HCL 20MG CAPSULE PO SCH (09:46)
[2019-08-01] MEDS: BENZTROPINE MESYLATE 1MG TABLET PO SCH (09:46)
[2019-08-01] MEDS: GABAPENTIN 300MG CAPSULE PO SCH (09:46)
[2019-08-01] MEDS: OMEPRAZOLE 20MG CAPSULE EXTENDED RELEASE PO SCH (09:46)
[2019-08-01] MEDS: HYDROCHLOROTHIAZIDE 25MG TABLET PO SCH (09:50)
[2019-08-01] MEDS ORDERED: PROM-177 MT (10:00)
== END 2019-08-01 10:35 | disposition home or self-care (01) | DRG 243 ==
LOC: ER 16:09 → 7WST 18:43 → EDBEDREQ 19:08 → ENRESERV 20:14
PROVIDERS: ADMIT Internal Medicine; ATTEND Internal Medicine
DX: K21.9 Gastro-esophageal reflux disease without esophagitis (principal); I11.0 Hypertensive heart disease with heart failure; I50.9 Heart failure, unspecified; J44.1 Chronic obstructive pulmonary disease with (acute) exacerbation; F17.210 Nicotine dependence, cigarettes, uncomplicated; Z88.0 Allergy status to penicillin; Z88.8 Allergy status to other drugs, medicaments and biological substances; Z71.6 Tobacco abuse counseling; Z79.899 Other long term (current) drug therapy
CPT/HCPCS: 36415; 36600; 71045; 80048; 80320; 82375; 82805; 83605; 83880; 84484; 93005; 94640; 96374; 99285; C1893; J1650; J1956; J2270; J2405; J2930; J3475; J7030; J7620; G0480

== ENCOUNTER 2020-05-14 07:46 | Inpatient (IN) | payer MEDICAID ==
[~2020-05-14] VITALS: Ht 162.6 cm; Wt 104.8 kg
[~2020-05-14 07:46] MED LIST changes: +ALBU6.7H9 INH; +BENZ1TAB7 PO; +BREX1TAB PO; +LEVO500T2 MT; +P20 MT; +PROM-177 MT; -SIMV10TA6 PO; +SIMV10TA97 PO
[2020-05-14] MEDS ORDERED: SODIUM CHLORIDE 0.9% 1,000 ML IV ONE (08:25)
[2020-05-14] MEDS ORDERED: ONDANSETRON HCL 4MG/2ML INJ IV STA (08:25)
[2020-05-14] MEDS ORDERED: METHYLPREDNISOLONE SOD SUCC 125 MG/2 ML VIAL IV ONE (08:30)
[2020-05-14 08:35] LABS: BASOPHILS % 1.2 % (0.0-2.0); HEMATOCRIT. 39.2 % (36.0-48.0); HEMOGLOBIN. 13.3 g/dL (12.0-16.0); LYMPHOCYTES % 25.6 % (20.0-50.0); MEAN CORPUSCULAR HEMOGLOBIN 29.9 pg (28.0-32.0); MEAN CORPUSCULAR VOLUME 88.5 fL (81.0-99.0); MEAN PLATELET VOLUME 8.2 fl (7.4-10.4); MONOCYTES % 5.3 % (2.0-8.0); NEUTROPHILS % 62.9 % (40.0-76.0); PLATELET 339 x1000/uL (130-400); RED BLOOD CELL COUNT 4.44 mill/uL (4.2-5.4)
[2020-05-14 08:40] LABS: CHLORIDE 96 mEq/L (98-107)
[2020-05-14 08:41] LABS: PROTHROMBIN TIME 10.8 sec (9.6-11.0)
[2020-05-14 08:50] LABS: CLARITY URINE CLEAR (CLEAR); COLOR URINE YELLOW (YELLOW); KETONES URINE NEGATIVE (NEGATIVE); LEUKOCYTE ESTERASE URINE NEGATIVE (NEGATIVE); NITRITE URINE NEGATIVE (NEGATIVE); OCCULT BLOOD URINE NEGATIVE (NEGATIVE); PROTEIN URINE NEGATIVE (NEGATIVE); SPECIFIC GRAVITY URINE 1.005 (1.005-1.030); UROBILINOGEN URINE 0.2 E.U./dL (0.2-1.0)
[2020-05-14 09:03] LABS: HCG SCREEN NEGATIVE
[2020-05-14] MEDS ORDERED: POTASSIUM CHLORIDE 20MEQ TABLET SR PO ONE (09:45)
[2020-05-14] MEDS ORDERED: MAGNESIUM 2 G PREMIX 50 ML IV ONE (09:45)
[2020-05-14] MEDS ORDERED: KCL 20MEQ/100ML PREMIX 100 ML IV ONE (09:45)
[2020-05-14] MEDS ORDERED: POTASSIUM CHLORIDE 20MEQ TABLET SR PO NR ×2 (11:45→19:00)
[2020-05-14] MEDS ORDERED: ONDANSETRON HCL 4MG/2ML INJ IV PRN (11:45)
[2020-05-14] MEDS ORDERED: KCL 20MEQ/100ML PREMIX 100 ML IV SCH (15:30)
[2020-05-14] MEDS ORDERED: DIATR MEGLU/DIATRIZOATE SOLN 30ML PO SCH (19:00)
[2020-05-14] MEDS ORDERED: DIATR MEGLU/DIATRIZOATE SOLN 30ML ONE (19:57)
[2020-05-14] MEDS: IPRATROPIUM/ALBUTEROL 0.5-3(2.5)MG/3ML NEB HHN SCH (20:55)
[2020-05-14] MEDS ORDERED: IOHEXOL-300 100 ML BOTTLE ONE (23:13)
[2020-05-15] VITALS (7 sets, daily range): BP systolic 111–143; BP diastolic 64–85
[2020-05-15] MEDS: IPRATROPIUM/ALBUTEROL 0.5-3(2.5)MG/3ML NEB HHN SCH ×6 (00:08→21:23)
[2020-05-15] MEDS: ACETAMINOPHEN 325MG TABLET PO PRN ×3 (00:49→20:47)
[2020-05-15 06:30] LABS: CHLORIDE 102 mEq/L (98-107)
[2020-05-15] MEDS: BENZONATATE 100MG CAPSULE PO PRN ×2 (06:52→20:48)
[2020-05-15 08:16] LABS: BASOPHILS % 0.3 % (0.0-2.0); EOSINOPHILS % 0.1 % (0.0-5.0); HEMATOCRIT. 37.8 % (36.0-48.0); HEMOGLOBIN. 12.7 g/dL (12.0-16.0); LYMPHOCYTES % 16.3 % (20.0-50.0); MEAN CORPUSCULAR HEMOGLOBIN 29.5 pg (28.0-32.0); MEAN CORPUSCULAR VOLUME 87.8 fL (81.0-99.0); MEAN PLATELET VOLUME 8.5 fl (7.4-10.4); MONOCYTES % 5.3 % (2.0-8.0); PLATELET 351 x1000/uL (130-400); RED BLOOD CELL COUNT 4.31 mill/uL (4.2-5.4); RED CELL DISTRIBUTION WIDTH 14.2 % (11.6-14.6)
[2020-05-15] MEDS: CETIRIZINE 10MG TABLET PO SCH (08:43)
[2020-05-15] MEDS: HYDROCHLOROTHIAZIDE 25MG TABLET PO SCH (08:44)
[2020-05-15] MEDS: OLANZAPINE 10MG TABLET PO SCH (08:44)
[2020-05-15] MEDS: FLUOXETINE HCL 20MG CAPSULE PO SCH (08:45)
[2020-05-15] MEDS: BENZTROPINE MESYLATE 1MG TABLET PO SCH (08:45)
[2020-05-15] MEDS ORDERED: MEDICATION NOT ON FORMULARY EA (Olanzapine 20 MG) PO SCH (09:00)
[2020-05-15] MEDS ORDERED: POTASSIUM CHLORIDE 20MEQ TABLET SR PO NR (09:00)
[2020-05-15] MEDS ORDERED: BUSPIRONE HCL 5MG TABLET PO SCH (09:00)
[2020-05-15] MEDS ORDERED: MEDICATION NOT ON FORMULARY EA (Gabapentin 600 MG) PO SCH (09:00)
[2020-05-15] MEDS ORDERED: MEDICATION NOT ON FORMULARY EA (Buspirone Hcl 15 MG) PO SCH (09:00)
[2020-05-15] MEDS ORDERED: BREXPIPRAZOLE 1 MG PO SCH (09:00)
[2020-05-15] MEDS ORDERED: MEDICATION NOT ON FORMULARY EA (Fluoxetine Hcl 40 MG) PO SCH (09:00)
[2020-05-15] MEDS: GABAPENTIN 300MG CAPSULE PO SCH ×2 (10:43→16:57)
[2020-05-15] MEDS: BUSPIRONE HCL 10MG TABLET PO SCH ×4 (10:44→20:48)
[2020-05-15] MEDS: METRONIDAZOLE 500 MG PREMIX 100 ML IV SCH ×2 (14:00→20:49)
[2020-05-15] MEDS: LEVOFLOXACIN 500MG PREMIX 100 ML IV SCH (14:10)
[2020-05-15] MEDS: TRAZODONE HCL 50MG TABLET PO SCH (20:47)
[2020-05-15] MEDS: ATORVASTATIN CALCIUM 10MG TABLET PO SCH (20:48)
[2020-05-15] MEDS ORDERED: MEDICATION NOT ON FORMULARY EA (Trazodone Hcl 150 MG) PO SCH (21:00)
[2020-05-16] VITALS (7 sets, daily range): BP systolic 107–145; BP diastolic 67–88
[2020-05-16] MEDS: IPRATROPIUM/ALBUTEROL 0.5-3(2.5)MG/3ML NEB HHN SCH ×6 (00:53→20:31)
[2020-05-16] MEDS: METRONIDAZOLE 500 MG PREMIX 100 ML IV SCH ×3 (05:27→22:00)
[2020-05-16 06:50] LABS: BASOPHILS % 0.4 % (0.0-2.0); EOSINOPHILS % 2.4 % (0.0-5.0); HEMATOCRIT. 36.9 % (36.0-48.0); HEMOGLOBIN. 12.3 g/dL (12.0-16.0); LYMPHOCYTES % 39.9 % (20.0-50.0); MEAN CORPUSCULAR HEMOGLOBIN 29.7 pg (28.0-32.0); MEAN CORPUSCULAR VOLUME 88.9 fL (81.0-99.0); MEAN PLATELET VOLUME 8.1 fl (7.4-10.4); MONOCYTES % 4.5 % (2.0-8.0); NEUTROPHILS % 52.8 % (40.0-76.0); PLATELET 342 x1000/uL (130-400); RED BLOOD CELL COUNT 4.15 mill/uL (4.2-5.4); RED CELL DISTRIBUTION WIDTH 14.5 % (11.6-14.6)
[2020-05-16 06:52] LABS: CHLORIDE 98 mEq/L (98-107)
[2020-05-16] MEDS ORDERED: POTASSIUM CHLORIDE 20MEQ TABLET SR PO NR ×3 (09:00→17:30)
[2020-05-16] MEDS: HYDROCHLOROTHIAZIDE 25MG TABLET PO SCH (09:17)
[2020-05-16] MEDS: BUSPIRONE HCL 10MG TABLET PO SCH ×4 (09:17→19:56)
[2020-05-16] MEDS: OLANZAPINE 10MG TABLET PO SCH (09:18)
[2020-05-16] MEDS: BENZTROPINE MESYLATE 1MG TABLET PO SCH (09:19)
[2020-05-16] MEDS: FLUOXETINE HCL 20MG CAPSULE PO SCH (09:19)
[2020-05-16] MEDS: GABAPENTIN 300MG CAPSULE PO SCH ×2 (09:20→17:42)
[2020-05-16] MEDS: CETIRIZINE 10MG TABLET PO SCH (09:20)
[2020-05-16] MEDS ORDERED: POTASSIUM CHLORIDE INJ 40 MEQ in DEXT 5% WATER 500 ML IV NR (10:00)
[2020-05-16] MEDS: ACETAMINOPHEN 325MG TABLET PO PRN (10:55)
[2020-05-16] MEDS: LEVOFLOXACIN 500MG PREMIX 100 ML IV SCH (14:26)
[2020-05-16] MEDS ORDERED: MAGNESIUM 2 G PREMIX 50 ML IV ONE (18:30)
[2020-05-16] MEDS ORDERED: MAGNESIUM/ALUMINUM HYDROXIDE/SIMETHICONE 30ML UDC PO PRN (19:45)
[2020-05-16] MEDS: TRAZODONE HCL 50MG TABLET PO SCH (19:55)
[2020-05-16] MEDS: ATORVASTATIN CALCIUM 10MG TABLET PO SCH (19:56)
[2020-05-17] MEDS ORDERED: ARIPIPRAZOLE 2MG TABLET PO SCH (14:00)
== END 2020-05-16 23:45 | disposition home or self-care (01) | DRG 249 ==
LOC: ER 07:46 → 6EST 11:16 → EDBEDREQ 11:20 → EDBEDREQSVC 11:20 → ENRESERV 20:31 → 6EST 21:41
PROVIDERS: ADMIT Internal Medicine; ATTEND Internal Medicine
DX: K52.9 Noninfective gastroenteritis and colitis, unspecified (principal); E87.6 Hypokalemia; E83.42 Hypomagnesemia; E66.9 Obesity, unspecified; E87.1 Hypo-osmolality and hyponatremia; F12.90 Cannabis use, unspecified, uncomplicated; F32.9 Major depressive disorder, single episode, unspecified; R45.851 Suicidal ideations; J44.9 Chronic obstructive pulmonary disease, unspecified; Z20.828 Contact with and (suspected) exposure to other viral communicable diseases; E78.5 Hyperlipidemia, unspecified; Z88.6 Allergy status to analgesic agent; Z88.0 Allergy status to penicillin; Z79.2 Long term (current) use of antibiotics; Z79.899 Other long term (current) drug therapy; Z68.39 Body mass index [BMI] 39.0-39.9, adult; Z71.3 Dietary counseling and surveillance
CPT/HCPCS: 36415; 71045; 74177; 80048; 80053; 81003; 83735; 83880; 84132; 84484; 84703; 85025; 93005; 94640; 96365; 99285; J1956; J2405; J2930; J3475; J3480; J3490; J7030; J7060; Q9963; Q9967; U0003-CS

== ENCOUNTER 2020-09-23 08:12 | Emergency (ER) | payer MEDICAID ==
[~2020-09-23] VITALS: Ht 162.6 cm; Wt 96.0 kg
[~2020-09-23 08:12] MED LIST changes: -LEVO500T2 MT
[2020-09-23] MEDS ORDERED: KETOROLAC 60MG/2ML VIAL IM ONE (09:00)
[2020-09-23 09:26] VITALS: BP 144/71
== END 2020-09-23 09:26 | disposition home or self-care (01) ==
LOC: ER 08:20
DX: M54.42 Lumbago with sciatica, left side (principal); J44.9 Chronic obstructive pulmonary disease, unspecified; F12.10 Cannabis abuse, uncomplicated; Z88.6 Allergy status to analgesic agent; Z88.0 Allergy status to penicillin
CPT/HCPCS: 96372; 99283; J1885

== ENCOUNTER 2020-09-29 10:56 | Emergency (ER) | payer MEDICAID ==
[~2020-09-29] VITALS: Ht 162.6 cm; Wt 113.0 kg
[2020-09-29] MEDS ORDERED: ALBUTEROL (0.083%) 2.5MG/3ML NEB HHN STA (11:15)
[2020-09-29] MEDS ORDERED: IPRATROPIUM BROMIDE (0.02%) 0.5MG/2.5ML NEB HHN STA (11:15)
[2020-09-29] MEDS ORDERED: METHYLPREDNISOLONE SOD SUCC 125 MG/2 ML VIAL IV STA (11:15)
[2020-09-29 12:42] LABS: BASOPHILS % 1.3 % (0.0-2.0); EOSINOPHILS % 2.6 % (0.0-5.0); HEMATOCRIT. 37.5 % (36.0-48.0); HEMOGLOBIN. 12.7 g/dL (12.0-16.0); MEAN CORPUSCULAR HEMOGLOBIN 30.4 pg (28.0-32.0); MEAN CORPUSCULAR VOLUME 89.6 fL (81.0-99.0); MEAN PLATELET VOLUME 7.8 fl (7.4-10.4); MONOCYTES % 5.9 % (2.0-8.0); NEUTROPHILS % 55.2 % (40.0-76.0); PLATELET 405 x1000/uL (130-400); RED BLOOD CELL COUNT 4.18 mill/uL (4.2-5.4); RED CELL DISTRIBUTION WIDTH 14.2 % (11.6-14.6)
[2020-09-29 12:43] LABS: CHLORIDE 94 mEq/L (98-107)
[2020-09-29] MEDS ORDERED: POTASSIUM CHLORIDE 20MEQ TABLET SR PO ONE ×2 (13:30→15:15)
[2020-09-29] MEDS ORDERED: KCL 10MEQ/50ML PREMIX 100 ML IV SCH (13:30)
[2020-09-29 13:35] VITALS: BP 133/62
== END 2020-09-29 15:27 | disposition home or self-care (01) ==
LOC: ER 11:12
DX: J44.1 Chronic obstructive pulmonary disease with (acute) exacerbation (principal); R07.89 Other chest pain; Z87.19 Personal history of other diseases of the digestive system; F12.10 Cannabis abuse, uncomplicated; Z79.899 Other long term (current) drug therapy; Z88.0 Allergy status to penicillin; Z88.6 Allergy status to analgesic agent; Z20.828 Contact with and (suspected) exposure to other viral communicable diseases
CPT/HCPCS: 36415; 71045; 73560; 80053; 83880; 84484; 85025; 87635; 93005; 96374; 99285; C9803; J2930; J3480; Z7610

== ENCOUNTER 2020-12-09 08:57 | Emergency (ER) | payer MEDICAID, OTHER ==
[~2020-12-09] VITALS: Ht 162.6 cm; Wt 95.0 kg
[2020-12-09] MEDS ORDERED: ALBUTEROL (0.083%) 2.5MG/3ML NEB HHN STA (10:07)
[2020-12-09] MEDS ORDERED: METHYLPREDNISOLONE SOD SUCC 125 MG/2 ML VIAL IV STA (10:07)
[2020-12-09 10:31] LABS: CHLORIDE 102 mEq/L (98-107)
[2020-12-09 10:32] LABS: BASOPHILS % 0.9 % (0.0-2.0); EOSINOPHILS % 2.6 % (0.0-5.0); HEMOGLOBIN. 13.3 g/dL (12.0-16.0); LYMPHOCYTES % 32.3 % (20.0-50.0); MEAN CORPUSCULAR HEMOGLOBIN 30.4 pg (28.0-32.0); MEAN CORPUSCULAR VOLUME 89.3 fL (81.0-99.0); MEAN PLATELET VOLUME 8.6 fl (7.4-10.4); MONOCYTES % 5.5 % (2.0-8.0); NEUTROPHILS % 58.7 % (40.0-76.0); PLATELET 324 x1000/uL (130-400); RED BLOOD CELL COUNT 4.37 mill/uL (4.2-5.4)
[2020-12-09] MEDS ORDERED: ALBU6.7H11 INH (11:42)
[2020-12-09] MEDS ORDERED: P50 MT (11:44)
[2020-12-09] MEDS ORDERED: IBUP-2029 MT (11:44)
[2020-12-09 12:25] VITALS: BP 123/69
== END 2020-12-09 12:30 | disposition home or self-care (01) ==
LOC: ER 09:11
DX: J44.1 Chronic obstructive pulmonary disease with (acute) exacerbation (principal); S90.02XA Contusion of left ankle, initial encounter; S90.01XA Contusion of right ankle, initial encounter; I10 Essential (primary) hypertension; W01.0XXA Fall on same level from slipping, tripping and stumbling without subsequent striking against object, initial encounter; Y93.89 Activity, other specified; Y92.89 Other specified places as the place of occurrence of the external cause; Z79.51 Long term (current) use of inhaled steroids; Z79.52 Long term (current) use of systemic steroids; Z79.899 Other long term (current) drug therapy
CPT/HCPCS: 36415; 71045; 73610; 80053; 85025; 93005; 94640; 96374; 99285; J2930; Z7610

== ENCOUNTER 2021-06-21 12:27 | Emergency (ER) | payer OTHER ==
[~2021-06-21] VITALS: Ht 162.6 cm; Wt 91.0 kg
[~2021-06-21 12:27] MED LIST changes: +ALBU6.7H11 INH; +IBUP-2029 MT; +P50 MT
[2021-06-21] MEDS ORDERED: MORPHINE SULFATE 4 MG/ML CPJ (NOT FOR IM USE) IV STA (13:15)
[2021-06-21] MEDS ORDERED: IPRATROPIUM BROMIDE (0.02%) 0.5MG/2.5ML NEB HHN STA (13:15)
[2021-06-21] MEDS: ALBUTEROL (0.083%) 2.5MG/3ML NEB HHN SCH ×3 (13:30→14:30)
[2021-06-21 13:58] LABS: CHLORIDE 98 mEq/L (98-107)
[2021-06-21 14:08] LABS: BASOPHILS % 1.1 % (0.0-2.0); EOSINOPHILS % 2.1 % (0.0-5.0); HEMATOCRIT. 39.1 % (36.0-48.0); HEMOGLOBIN. 13.4 g/dL (12.0-16.0); MEAN CORPUSCULAR HEMOGLOBIN 30.4 pg (28.0-32.0); MEAN CORPUSCULAR VOLUME 88.7 fL (81.0-99.0); MEAN PLATELET VOLUME 8.1 fl (7.4-10.4); MONOCYTES % 5.7 % (2.0-8.0); NEUTROPHILS % 54.1 % (40.0-76.0); PLATELET 326 x1000/uL (130-400); RED BLOOD CELL COUNT 4.41 mill/uL (4.2-5.4); RED CELL DISTRIBUTION WIDTH 13.7 % (11.6-14.6)
[2021-06-21] MEDS ORDERED: KETOROLAC 15MG/ML VIAL IV ONE (16:00)
[2021-06-21] MEDS ORDERED: ALBU6.7H9 INH (16:39)
[2021-06-21] MEDS ORDERED: AZIT500T8 MT (16:40)
[2021-06-21] MEDS ORDERED: P50 MT (16:40)
[2021-06-21 17:04] VITALS: BP 145/82
== END 2021-06-21 17:05 | disposition home or self-care (01) ==
LOC: ER 13:47
DX: J44.1 Chronic obstructive pulmonary disease with (acute) exacerbation (principal); M54.5 Low back pain; M25.561 Pain in right knee; F17.290 Nicotine dependence, other tobacco product, uncomplicated; I10 Essential (primary) hypertension; Z88.6 Allergy status to analgesic agent; Z88.0 Allergy status to penicillin; Z79.899 Other long term (current) drug therapy
CPT/HCPCS: 36415; 71045; 80053; 84484; 85025; 94644; 96374; 96375; 99285; 99406; J1885; J2270; Z7610

== ENCOUNTER 2022-01-12 13:19 | Emergency (ER) | payer OTHER ==
[~2022-01-12] VITALS: Ht 162.6 cm; Wt 91.0 kg
[~2022-01-12 13:19] MED LIST changes: -ALBU6.7H11 INH; +ALBU6.7H15 INH; +AZIT500T8 MT
[2022-01-12 14:33] LABS: BASOPHILS % 0.8 % (0.0-2.0); EOSINOPHILS % 2.1 % (0.0-5.0); HEMATOCRIT. 37.4 % (36.0-48.0); HEMOGLOBIN. 12.6 g/dL (12.0-16.0); LYMPHOCYTES % 25.4 % (20.0-50.0); MEAN CORPUSCULAR HEMOGLOBIN 28.4 pg (28.0-32.0); MEAN CORPUSCULAR VOLUME 84.4 fL (81.0-99.0); MEAN PLATELET VOLUME 7.7 fl (7.4-10.4); NEUTROPHILS % 65.7 % (40.0-76.0); PLATELET 272 x1000/uL (130-400); RED BLOOD CELL COUNT 4.43 mill/uL (4.2-5.4); RED CELL DISTRIBUTION WIDTH 14.2 % (11.6-14.6)
[2022-01-12 14:42] LABS: CHLORIDE 105 mEq/L (98-107)
[2022-01-12 14:46] LABS: ETHANOL BLOOD < 10 mg/dL
[2022-01-12] MEDS ORDERED: IPRATROPIUM BROMIDE (0.02%) 0.5MG/2.5ML NEB HHN STA (14:52)
[2022-01-12 14:55] LABS: CLARITY URINE CLOUDY (CLEAR); COLOR URINE DARK YELLOW (YELLOW); KETONES URINE TRACE (NEGATIVE); LEUKOCYTE ESTERASE URINE TRACE (NEGATIVE); NITRITE URINE NEGATIVE (NEGATIVE); OCCULT BLOOD URINE NEGATIVE (NEGATIVE); PROTEIN URINE 1+ (NEGATIVE); SPECIFIC GRAVITY URINE 1.027 (1.005-1.030)
[2022-01-12] MEDS ORDERED: ALBUTEROL (0.083%) 2.5MG/3ML NEB HHN SCH (15:00)
[2022-01-12] MEDS ORDERED: SODIUM CHLORIDE 0.9% 1,000 ML IV ONE (15:00)
[2022-01-12] MEDS ORDERED: POTASSIUM CHLORIDE 20MEQ/PACKET PO ONE (15:00)
[2022-01-12 15:23] LABS: *AMPHETAMINES SCREEN URINE NEGATIVE (NEGATIVE); *BARBITURATES SCREEN URINE NEGATIVE (NEGATIVE); *BENZODIAZEPINES SCREEN URINE NEGATIVE (NEGATIVE); *COCAINE SCREEN URINE NEGATIVE (NEGATIVE); METHADONE URINE SCREEN NEGATIVE (NEGATIVE)
[2022-01-12 15:24] LABS: CANNABINOID URINE SCREEN PRESUMTIVE POSITIVE (NEGATIVE); OPIATES URINE SCREEN PRESUMTIVE POSITIVE (NEGATIVE); PHENCYCLIDINE URINE SCREEN NEGATIVE (NEGATIVE)
[2022-01-12] MEDS ORDERED: CEFTRIAXONE 1 G PREMIX 50 ML IV ONE (15:30)
[2022-01-12] MEDS ORDERED: ONDANSETRON HCL 4MG/2ML INJ IV ONE (15:45)
[2022-01-12] MEDS ORDERED: KETOROLAC 30MG/ML VIAL IV ONE (15:45)
[2022-01-12] MEDS ORDERED: ACETAMINOPHEN 325MG TABLET PO ONE (15:45)
[2022-01-12] MEDS ORDERED: CEFP200T13 MT (16:12)
[2022-01-12] MEDS ORDERED: MORPHINE SULFATE 4 MG/ML CPJ (NOT FOR IM USE) IV ONE (16:30)
[2022-01-12 17:48] VITALS: BP 131/75
== END 2022-01-12 18:01 | disposition home or self-care (01) ==
LOC: ER 13:19
DX: R51.9 Headache, unspecified (principal); N39.0 Urinary tract infection, site not specified; E87.6 Hypokalemia; J44.9 Chronic obstructive pulmonary disease, unspecified; Z86.73 Personal history of transient ischemic attack (TIA), and cerebral infarction without residual deficits; J45.909 Unspecified asthma, uncomplicated; I10 Essential (primary) hypertension; M25.552 Pain in left hip; Z88.0 Allergy status to penicillin; Z88.6 Allergy status to analgesic agent; Z79.51 Long term (current) use of inhaled steroids; Z79.899 Other long term (current) drug therapy
CPT/HCPCS: 36415; 70450; 71045; 80053; 80305; 80307; 80320; 80329; 81003; 83690; 83880; 84484; 85025; 85610; 93005; 96361; 96365; 96375; 99285; J0696; J1885; J2270; J2405; G0480

== ENCOUNTER 2022-02-07 12:34 | Emergency (ER) | payer OTHER ==
[~2022-02-07] VITALS: Ht 162.6 cm; Wt 88.0 kg
[~2022-02-07 12:34] MED LIST changes: +CEFP200T13 MT
[2022-02-07 12:45] VITALS: BP 163/78
[2022-02-07 16:05] LABS: HEMATOCRIT 29.2 % (36.0-48.0); HEMOGLOBIN 9.5 g/dL (12.0-16.0); MEAN CORPUSCULAR HEMOGLOBIN 27.1 pg (28.0-32.0); MEAN CORPUSCULAR VOLUME 83.7 fL (81.0-99.0); PLATELET 420 x1000/uL (130-400); RED BLOOD CELL COUNT 3.49 mill/uL (4.2-5.4); RED CELL DISTRIBUTION WIDTH 14.8 % (11.6-14.6)
[2022-02-07 16:13] LABS: CHLORIDE 107 mEq/L (98-107)
[2022-02-07] MEDS ORDERED: P20 MT (16:37)
== END 2022-02-07 16:57 | disposition home or self-care (01) ==
LOC: ER 13:31
DX: G43.909 Migraine, unspecified, not intractable, without status migrainosus (principal); I10 Essential (primary) hypertension; J44.9 Chronic obstructive pulmonary disease, unspecified; J45.909 Unspecified asthma, uncomplicated; D64.9 Anemia, unspecified; F17.210 Nicotine dependence, cigarettes, uncomplicated; Z86.73 Personal history of transient ischemic attack (TIA), and cerebral infarction without residual deficits; Z96.649 Presence of unspecified artificial hip joint; Z88.0 Allergy status to penicillin
CPT/HCPCS: 36415; 80048; 85027; 85651; 86140; 99283

== ENCOUNTER 2022-02-17 11:46 | Emergency (ER) | payer OTHER ==
[~2022-02-17] VITALS: Ht 162.6 cm; Wt 88.0 kg
[2022-02-17] MEDS ORDERED: ALBUTEROL (0.083%) 2.5MG/3ML NEB HHN STA (17:28)
[2022-02-17] MEDS ORDERED: IPRATROPIUM BROMIDE (0.02%) 0.5MG/2.5ML NEB HHN STA (17:28)
[2022-02-17] MEDS ORDERED: METHYLPREDNISOLONE SOD SUCC 125 MG/2 ML VIAL IV STA (17:51)
[2022-02-17 18:45] LABS: CHLORIDE 97 mEq/L (98-107); HEMATOCRIT. 25.7 % (36.0-48.0); HEMOGLOBIN. 8.5 g/dL (12.0-16.0); MEAN CORPUSCULAR HEMOGLOBIN 26.6 pg (28.0-32.0); MEAN CORPUSCULAR VOLUME 80.3 fL (81.0-99.0); MEAN PLATELET VOLUME 7.6 fl (7.4-10.4); PLATELET 403 x1000/uL (130-400); RED BLOOD CELL COUNT 3.21 mill/uL (4.2-5.4); RED CELL DISTRIBUTION WIDTH 14.5 % (11.6-14.6)
[2022-02-17 20:36] LABS: NUCLEATED RED BLOOD CELLS 1 /100 WBC
[2022-02-17 20:37] LABS: PLATELET ESTIMATE SLIGHTLY INCREASED
[2022-02-17] MEDS ORDERED: PANTOPRAZOLE 80 MG in SODIUM CHLORIDE 0.9% 100 ML IV STA (20:39)
[2022-02-17] MEDS ORDERED: PANTOPRAZOLE SODIUM 40 MG/VIAL IV STA (20:39)
[2022-02-17 21:43] LABS: INR 1.1; PARTIAL THROMBOPLASTIN TIME 33.8 sec (23.4-31.0); PROTHROMBIN TIME 11.7 sec (9.6-11.0)
[2022-02-17] MEDS ORDERED: IOHEXOL-300 100 ML BOTTLE ONE (22:40)
[2022-02-17] MEDS ORDERED: PANTOPRAZOLE SODIUM 40 MG/VIAL IV NR (22:45)
[2022-02-18] MEDS ORDERED: VANCOMYCIN 1G PREMIX 200 ML IV ONE
[2022-02-18] MEDS ORDERED: VANCOMYCIN 1GM PMX (XELLIA) 200 ML IV NR
[2022-02-18] MEDS ORDERED: MEROPENEM 1,000 MG in SODIUM CHLORIDE 0.9% 100 ML IV NR ×2
[2022-02-18 00:42] VITALS: BP 122/69
== END 2022-02-18 00:45 | disposition short-term general hospital (02) ==
LOC: ER 12:49
DX: K92.2 Gastrointestinal hemorrhage, unspecified (principal); D64.9 Anemia, unspecified; D72.829 Elevated white blood cell count, unspecified; I10 Essential (primary) hypertension; J45.909 Unspecified asthma, uncomplicated; J44.9 Chronic obstructive pulmonary disease, unspecified; G43.909 Migraine, unspecified, not intractable, without status migrainosus; Z88.0 Allergy status to penicillin; Z86.73 Personal history of transient ischemic attack (TIA), and cerebral infarction without residual deficits; Z96.642 Presence of left artificial hip joint; Z20.822 Contact with and (suspected) exposure to COVID-19
CPT/HCPCS: 36415; 71045; 74177; 80053; 84484; 85025; 85610; 85730; 86850; 86900; 86901; 87426; 93005; 96365; 96375; 99285; C9113; J2185; J2930; J7050; Q9967; J3370

== ENCOUNTER 2022-03-02 11:57 | Emergency (ER) | payer OTHER ==
[~2022-03-02] VITALS: Ht 162.6 cm; Wt 86.0 kg
[2022-03-02 13:13] LABS: BASOPHILS % 0.4 % (0.0-2.0); EOSINOPHILS % 0.2 % (0.0-5.0); HEMATOCRIT. 26.9 % (36.0-48.0); HEMOGLOBIN. 8.7 g/dL (12.0-16.0); LYMPHOCYTES % 11.8 % (20.0-50.0); MEAN CORPUSCULAR HEMOGLOBIN 26.3 pg (28.0-32.0); MEAN CORPUSCULAR VOLUME 81.8 fL (81.0-99.0); MEAN PLATELET VOLUME 7.6 fl (7.4-10.4); MONOCYTES % 6.4 % (2.0-8.0); NEUTROPHILS % 81.2 % (40.0-76.0); PLATELET 419 x1000/uL (130-400); RED BLOOD CELL COUNT 3.29 mill/uL (4.2-5.4); RED CELL DISTRIBUTION WIDTH 16.6 % (11.6-14.6)
[2022-03-02 13:17] LABS: CHLORIDE 100 mEq/L (98-107)
[2022-03-02 13:22] LABS: PARTIAL THROMBOPLASTIN TIME 28.5 sec (23.4-31.0); PROTHROMBIN TIME 10.9 sec (9.6-11.0)
[2022-03-02 13:25] LABS: ETHANOL BLOOD < 10 mg/dL
[2022-03-02] MEDS ORDERED: IOHEXOL-350 100 ML BOTTLE ONE (13:52)
[2022-03-02 15:09] LABS: CLARITY URINE CLEAR (CLEAR); COLOR URINE YELLOW (YELLOW); KETONES URINE NEGATIVE (NEGATIVE); LEUKOCYTE ESTERASE URINE NEGATIVE (NEGATIVE); NITRITE URINE NEGATIVE (NEGATIVE); OCCULT BLOOD URINE NEGATIVE (NEGATIVE); PROTEIN URINE NEGATIVE (NEGATIVE); SPECIFIC GRAVITY URINE 1.031 (1.005-1.030); UROBILINOGEN URINE 0.2 E.U./dL (0.2-1.0)
[2022-03-02] MEDS ORDERED: KETOROLAC 15MG/ML VIAL IV ONE (15:15)
[2022-03-02 15:28] LABS: *AMPHETAMINES SCREEN URINE NEGATIVE (NEGATIVE); *BARBITURATES SCREEN URINE NEGATIVE (NEGATIVE); *BENZODIAZEPINES SCREEN URINE NEGATIVE (NEGATIVE); *COCAINE SCREEN URINE NEGATIVE (NEGATIVE); CANNABINOID URINE SCREEN PRESUMTIVE POSITIVE (NEGATIVE); METHADONE URINE SCREEN NEGATIVE (NEGATIVE); OPIATES URINE SCREEN NEGATIVE (NEGATIVE); PHENCYCLIDINE URINE SCREEN NEGATIVE (NEGATIVE)
[2022-03-02] MEDS ORDERED: CEFTRIAXONE 1 G PREMIX 50 ML IV ONE (18:15)
[2022-03-02] MEDS ORDERED: ACETAMINOPHEN 325MG TABLET PO ONE (18:15)
[2022-03-02 18:36] VITALS: BP 129/69
== END 2022-03-02 18:50 | disposition short-term general hospital (02) ==
LOC: ER 11:57 → CANBEDREQ 19:59
DX: I63.231 Cerebral infarction due to unspecified occlusion or stenosis of right carotid arteries (principal); D72.829 Elevated white blood cell count, unspecified; R10.11 Right upper quadrant pain; H53.8 Other visual disturbances; I10 Essential (primary) hypertension; J44.9 Chronic obstructive pulmonary disease, unspecified; J45.909 Unspecified asthma, uncomplicated; G43.909 Migraine, unspecified, not intractable, without status migrainosus; Z86.73 Personal history of transient ischemic attack (TIA), and cerebral infarction without residual deficits; Z96.649 Presence of unspecified artificial hip joint; Z88.0 Allergy status to penicillin
CPT/HCPCS: 36415; 70450; 70496; 70498; 71045; 74177; 80053; 80305; 80320; 81003; 82962; 83690; 83880; 84484; 85025; 85610; 85730; 93005; 96365; 96375; 99291; J0696; J1885; Q9967; A4315; G0480